=== PATIENT | female | born 1950 | race Caucasian/White ===

== ENCOUNTER 2017-07-09 06:37 | Inpatient (IN) ==
[~2017-07-09 06:37] MED LIST: ACETAMINOPHEN 500 MG TABLET PO ONE; CEFAZOLIN 1 G INJECTION IVP ONE; DEXAMETHASONE 4 MG/ML INJECTION IVP ONE; FAMOTIDINE PB 20 MG/50 ML BAG IV ONE; LIDOCAINE 1% (10mg/ml) 2mL INJ PF SDV ID ONE; METOCLOPRAMIDE 10mg/2ml INJECTION IVP ONE; NOZIN NASAL SWAB NAS ONE; ONDANSETRON 4 MG/2 ML INJECTION IVP ONE
[2017-07-09 06:51] VITALS: BMI 33.2
[2017-07-09] MEDS ORDERED: SALINE FLUSH 10ml SYRINGE IVF PRN (06:54)
--- NOTE | 2017-07-09 07:20 | History & Physical Update ---
- History and Physical Update Date: 07/09/17 Update: I evaluated this patient and found no changes in the history and clinical exam findings. The treatment plan and recommendations are also unchanged from the previous documentation.
[2017-07-09] MEDS: LR 1,000 ML IV SCH ×2 (07:59→10:35)
[2017-07-09] MEDS ORDERED: EPINEPHrine 0.25 MG, BUPIVACAINE 0.25% PF 30 ML, MORPHINE SULFATE 15 MG, KETOROLAC INJ ... OPSITE ONE (08:00)
[2017-07-09] MEDS ORDERED: PROPOFOL 500 MG/50 ML VIAL IV ONE (09:09)
[2017-07-09] MEDS ORDERED: MIDAZOLAM 2mg/2ml INJECTION ONE ×2 (09:10→10:20)
[2017-07-09] MEDS ORDERED: VANCOMYCIN 1,000 MG INJECTION ONE (10:10)
[2017-07-09] MEDS ORDERED: KETAMINE 500 MG/10 ML INJECTION ONE (10:19)
[2017-07-09] MEDS ORDERED: FentaNYL 100 MCG/2 ML INJECTION ONE ×4 (10:19→12:25)
[2017-07-09] MEDS ORDERED: LIDOCAINE 2% JELLY Tube 30ml ONE (10:27)
--- NOTE | 2017-07-09 10:27 | Anesthesia Preoperative Report ---
Anesthesia Preoperative Record - Date and Time Date: 07/09/17 Preoperative Diagnosis: Lt TKA (RA) M17.12 Proposed Procedure: left TKA NPO Since Date: 07/08/17 NPO Since Time: 23:00 Allergies/Adverse Reactions: Allergies Allergy/AdvReac Type Severity Reaction Status Date / Time codeine AdvReac Unknown N/V Unverified 07/09/17 07:19 - Vital Signs Vital Signs: Temperature 98.2 F 07/09/17 06:49 Pulse Rate 58 L 07/09/17 07:44 Respiratory Rate 20 07/09/17 06:49 Blood Pressure 145/81 H 07/09/17 06:49 Pulse Oximetry 96 07/09/17 06:49 Oxygen Delivery Method Room Air Height and Weight: Height 5 ft 7 in Weight 96.2 kg Body Mass Index 33.2 - Medications Inpatient Medications: Current Medications Lactated Ringer's (Lactated Ringers) 1,000 mls @ 50 mls/hr IV .Q20H RASHEL Last Admin: 07/09/17 07:59 Dose: 50 mls/hr Miscellaneous Medication (Tranexamic 1gm/Ns 100 Irr Mix) 100 ml IR O ONE Stop: 07/09/17 10:53 Sodium Chloride (Iv Flush) 10 - 80 ml IVF PRN PRN PRN Reason: Flushing Home Medications: Home Medications Medication Instructions Recorded Confirmed Type Amiodarone HCl 200 mg PO DAILY #0 tab 12/12/15 07/09/17 History Enalapril Maleate 20 mg PO BID #0 tab 12/12/15 07/09/17 History Gabapentin 300 mg PO TID #0 cap 12/12/15 07/09/17 History Labetalol HCl 1 tab PO BID #0 tab 12/23/15 07/09/17 History Amlodipine [Norvasc] 10 mg PO DAILY 07/02/17 07/09/17 History Hydrocodone/APAP 10/325 [Joseph 1 tab PO ACHS 07/02/17 07/09/17 History 10/325] Morphine Sulfate [Morphine Sulfate 30 mg PO Q12H PRN 07/02/17 07/09/17 History ER] Omeprazole 40 mg PO DAILY 07/02/17 07/09/17 History metoclopramide 10 mg tablet 10 mg PO BID tab 07/05/17 07/09/17 History Is Patient on Beta Bimal?: Yes - Medical History Respiratory: DENIES: Asthma Cardiovascular: Reports: Arrhythmia (PSVT- well controlled) Gastrointestional: Reports: Gastroesophageal Reflux Disease (well controlled) Renal/Endocrine: DENIES: Diabetes Mellitus Type 2 Other History: DENIES: Anesthesia Reactions - Surgical History GI Surgery/Treatments: Reports: Colonoscopy (diverticulosis), EGD, Other (Laser treatment for tracheal stenosis x2) Musculoskeletal Surgery/Tx: Reports: Orthopedic Surgery (ORIF Rt arm), Total Hip Replacement (right-2016), Other (lt ankle scope) Reproductive Surgery/Treatment: Reports: Hysterectomy, Other (breast biopsy) Hx Family Anesthesia Reaction: No History of Motion Sickness: No - Social History Smoking Status: Never smoker Hx Chewing Tobacco Use: No Substance Use Type: does not use - Pertinent Findings Laboratory: CBC and BMP 07/09/17 07:03 BMP 07/09/17 07:03 Sodium 143 Potassium 3.3 L Chloride 106 Carbon Dioxide 27 BUN 12.0 Creatinine 0.8 Glucose 85 Calcium 9.3 - Physical Exam Respiratory Exam: Present: lungs clear Cardiovascular Exam: Present: regular rate and rhythm - Airway Assessment Mallampati Score: II TMD: 3 Fingerbreadths Neck Extension: good Overall Assessment: no airway concerns - ASA ASA Score: 2 - Plan Anesthesia: General Inhalation Gases - Discussion Discussion: Discussed risks/options/alternatives of anesthesia and questions answered. Patient consents. Nursing pain assessment noted. Attestation Statement: Prior to the delivery of any anesthetic medication, I examined the patient, developed the plan, obtained the patient's consent and discussed the risk and benefits of the procedure with the patient/guardian. - Additional Information Seen by Anesthesia: Yes
[2017-07-09] MEDS ORDERED: TRANEXAMIC ACID 1gm/NS 100ml IRR MIX IR ONE (10:52)
[2017-07-09] MEDS ORDERED: ROPIVACAINE 0.5% (5mg/ml) 30ml INJ ONE (11:05)
[2017-07-09] MEDS ORDERED: PROPOFOL 20 ML ONE (11:24)
[2017-07-09] MEDS ORDERED: VANCOMYCIN 1,000 MG INJECTION IAR ONE (11:35)
--- NOTE | 2017-07-09 12:04 | Operative Note ---
- Procedure Side: left Preoperative Diagnosis: hip primary DJD Postoperative Diagnosis: Same as preoperative diagnosis. Operation: total knee arthroplasty Surgeon: Dayo Ramirez MD Radio Dispatcher: Jonn Lea Complications: None. Regional/Trunk Block: Spinal Estimated Blood Loss: See Anesthesia Record. Fluids: Please see Anesthesia Record. Description of Procedure: Mrs. Nelson and her left knee were identified and marked in the preoperative holding area. She was brought back to the operating suite and placed supine on the operating table. Spinal anesthetic was administered. The operative lower extremity was prepped and draped in a sterile fashion. Timeout was performed. She had a severe fixed valgus deformity. An anterior midline incision followed by medial parapatellar arthrotomy was performed. The tourniquet was inflated 250 mmHg. Hemostasis was obtained with electrocautery. She complete loss of cartilage in the lateral femoral condyle and she had hypoplasia of the lateral femoral condyle. The patella was resurfaced to a size 9. A distal femoral osteotomy was then performed in 5 of valgus using intramedullary guide. The femur was sized at a 6 and rotation set using the epicondylar axis. Distal femoral cuts were performed with a 4-in-1 cutting block. A proximal tibial cut was then made perpendicular to its long axis using an extramedullary guide. At this point remaining meniscus and osteophytes were removed and joint cocktail was injected throughout soft tissue. Trial components were placed with a 9 mm spacer. This allowed for full extension and flexion and the patella tracked well after lateral release. The leg was then exsanguinated and the tourniquet inflated to 250 mmHg. The tibia was then stamped at a size 6 at the proper rotation. The bone was then prepared for cementing and Emma Triathal[employer] components were cemented into place and allowed to cure in extension. The tourniquet was then let down and hemostasis obtained with electrocautery. 1 g of TXA was allowed to sit in the wound for 5 minutes and then suctioned out.Betadine solution was used during the curing period for 3 minutes. 1 g of vancomycin powder was placed into the joint before the capsulotomy was repaired with #1 Vicryl. I then left my funeral assistant close the subcutaneous tissue and skin with 2-0 Vicryl and Monocryl. Dermabond was used on the skin. The drapes were then removed and she was taken to recovery room under the care of anesthesia.
[2017-07-09] MEDS: HYDROMORPHONE 2 MG/ML INJECTION IVP PRN ×4 (12:43→13:19)
[2017-07-09] MEDS: FentaNYL 100 MCG/2 ML INJECTION IVP PRN ×2 (13:35→13:49)
--- NOTE | 2017-07-09 14:01 | Anesthesia Postoperative Note ---
- Date and Time Date: 07/09/17 Time: 14:00 - Status Patient Participated in Evaluation: Patient Participated in Person Vital Signs: Temperature 97.1 F 07/09/17 12:26 Pulse Rate 67 07/09/17 13:55 Respiratory Rate 14 07/09/17 13:55 Blood Pressure 141/75 H 07/09/17 13:55 Pulse Oximetry 98 07/09/17 13:55 Oxygen Delivery Method Nasal Cannula Oxygen Flow Rate 2 Respiratory Function: Airway Patent Cardiovascular Function: Regular Pulse EKG Rhythm: Normal Sinus Rhythm Mental Status: Alert and Oriented Pain Intensity: 5 Hydration: IV Infusing Complications During Recover: None Apparent - Follow-Up Instructions Instructions: Per Surgeon
[2017-07-09] MEDS ORDERED: Oxycodone *IR* 5 MG TABLET PO ONE (14:02)
--- NOTE | 2017-07-09 14:04 | Anesthesia Procedure Note ---
Peripheral Nerve Blockade - Procedure Physician: Declan Ramirez MD Date: 07/09/17 Surgical Procedure: left knee arthroplasty Discussion: Discussed risks/options/alternatives of anesthesia and questions answered. Patient consents. Nursing pain assessment noted. Block Start: 12:31 Block Stop: 12:32 Indication: Post-Operative Pain Position: Supine Patient: Consent, Risks/Benefits Discussed, Post Block Act. Discussed IV Sedation: No Initial Vital Signs: Temperature 98.2 F 07/09/17 06:49 Temperature Source Oral 07/09/17 06:49 Pulse Rate 62 07/09/17 06:49 Respiratory Rate 20 07/09/17 06:49 Blood Pressure 145/81 H 07/09/17 06:49 Blood Pressure Mean 102 07/09/17 06:49 Blood Pressure Position Sitting 07/09/17 06:49 Pulse Oximetry 96 07/09/17 06:49 Oxygen Delivery Method 07/09/17 06:49 Post Vital Signs: Temperature 97.1 F 07/09/17 12:26 Pulse Rate 67 07/09/17 13:55 Respiratory Rate 14 07/09/17 13:55 Blood Pressure 141/75 H 07/09/17 13:55 Pulse Oximetry 98 07/09/17 13:55 Oxygen Delivery Method Nasal Cannula Oxygen Flow Rate 2 Initial Pain Pain Score: 10 Post Block Pain Score: 5 Prep: Chlorhexadine/ETOH Ultrasound Used?: Yes - Injectate Ropivacaine (%): 0.5 Ropivacaine (mL): 20 Injection: Injection made incrementally with constant monitoring and aspiration every ml
--- NOTE | 2017-07-09 14:10 | XRay Report ---
Indication: left total knee replacement PROCEDURE: XR knee LT 2V: Encounter: Initial Comparison: None Findings: Postoperative changes of left total knee replacement are seen. There is expected postoperative subcutaneous gas. No evidence of hardware failure or acute fracture. Linear metallic foreign body in the anterior and medial soft tissues measuring 1.8 cm in length of uncertain etiology. No retained radiopaque surgical instruments or sponges. Overlying material causing artifact. Impression: New left total knee prosthesis without evidence of immediate complication. Small linear metallic foreign body in the area of the quadriceps musculature. .
[2017-07-09] MEDS ORDERED: DiphenhydrAMINE 25 MG CAPSULE PO PRN (14:26)
[2017-07-09] MEDS ORDERED: NOZIN NASAL SWAB NAS ONE (14:26)
[2017-07-09] MEDS ORDERED: Oxycodone *IR* 5 MG TABLET PO PRN ×2 (14:26→15:30)
[2017-07-09] MEDS ORDERED: LORazepam 1 MG TABLET PO PRN (14:26)
[2017-07-09] MEDS ORDERED: DiphenhydrAMINE 50 MG/ML INJECTION IVP PRN (14:26)
[2017-07-09] MEDS ORDERED: ONDANSETRON 4 MG/2 ML INJECTION IVP PRN (14:26)
[2017-07-09] MEDS ORDERED: NAPROXEN 220 MG TABLET PO PRN (14:26)
[2017-07-09] MEDS: ACETAMINOPHEN 325 MG TABLET PO SCH ×3 (14:38→22:54)
[2017-07-09] MEDS: NS 1,000 ML IV SCH (14:39)
[2017-07-09] MEDS: NOZIN NASAL SWAB NAS SCH ×2 (15:38→21:25)
[2017-07-09] MEDS: GABAPENTIN 300 MG CAPSULE PO SCH ×2 (15:38→21:24)
[2017-07-09] MEDS ORDERED: TRANEXAMIC ACID 1,000 MG in NS 100 ML IV ONE (16:16)
[2017-07-09] MEDS: CEFAZOLIN 2 G in NS 100 ML IV SCH (17:38)
[2017-07-09] MEDS ORDERED: SENNOSIDES 8.6 MG TABLET PO SCH (21:00)
[2017-07-09] MEDS: LABETALOL 100 MG TABLET PO SCH (21:23)
[2017-07-09] MEDS: ASPIRIN *EC* 325 MG TABLET PO SCH (21:24)
[2017-07-09] MEDS: DOCUSATE SODIUM 100 MG CAPSULE PO SCH (21:24)
[2017-07-10] MEDS: CEFAZOLIN 2 G in NS 100 ML IV SCH (01:03)
[2017-07-10] MEDS: NS 1,000 ML IV SCH (05:12)
[2017-07-10] MEDS: NOZIN NASAL SWAB NAS SCH (05:13)
[2017-07-10] MEDS ORDERED: AMLODIPINE 10 MG TABLET PO SCH (09:00)
[2017-07-10] MEDS ORDERED: AMIODARONE 200 MG TABLET PO SCH (09:00)
[2017-07-10] MEDS: ASPIRIN *EC* 325 MG TABLET PO SCH (09:24)
[2017-07-10] MEDS: POLYETHYL GLYCOL 3350 17gm PACKET PO SCH ×2 (09:24→09:31)
[2017-07-10] MEDS: LABETALOL 100 MG TABLET PO SCH (09:25)
[2017-07-10] MEDS: ACETAMINOPHEN 325 MG TABLET PO SCH ×2 (09:25→12:29)
[2017-07-10] MEDS: DOCUSATE SODIUM 100 MG CAPSULE PO SCH (09:26)
[2017-07-10] MEDS: GABAPENTIN 300 MG CAPSULE PO SCH (09:26)
[2017-07-10 12:07] VITALS: BP 107/64; PULSE 68; RESP 18; TEMP 96.9; O2SAT 98
--- NOTE | 2017-07-10 12:09 | Orthopedic Progress Note ---
Date: Doing well. No specific concerns. Orthopedic Objective Vital signs: Temperature 97.7 F 07/10/17 08:00 Pulse Rate 66 07/10/17 08:00 Respiratory Rate 16 07/10/17 08:00 Blood Pressure 135/75 07/10/17 08:00 Pulse Oximetry 92 07/10/17 08:00 Oxygen Delivery Method Room Air Oxygen Flow Rate 1 Height and Weight: Height 5 ft 7 in Weight 96.2 kg Body Mass Index 33.2 - Constitutional General Appearance: Present: no acute distress - Respiratory Exam Present: non-labored - Cardiovascular Exam Present: pedal pulses intact Capillary Refill: < 2-3 Seconds - Extremities Exam Absent: calf tenderness - Neurological Exam Present: no deficits. Absent: intact to light touch - Psychiatric Exam Present: alert - Wound Management Left Knee Drainage Amount: None Primary Dressing: Mepilex - Labs Result Diagrams: 07/10/17 04:16 07/10/17 04:16 Abnormal lab results 07/10/17 07/10/17 Range/Units 04:16 04:16 RBC 3.20 L (4.00-5.20) M/MM3 Hgb 8.6 L (12-16) GM/DL Hct 28.9 L (36-46) % MCHC 29.8 L (31-37) GM/DL MPV 8.3 L (9.4-12.4) UM3 Potassium 3.5 L (3.6-5) MEQ/L Chloride 109 H (98-107) MEQ/L Glucose 130 H (65-110) MG/DL H & H 07/10/17 Range/Units 04:16 Hgb 8.6 L (12-16) GM/DL Hct 28.9 L (36-46) % Orthopedic Assessment and Plan (1) Primary osteoarthritis of left knee Status: Resolved Assessment and Plan: Doing well. Continue current treatment. Plan on discharge today pending her PT evaluation. Hospital Course Summary Disclaimer: The visit summary below is not to be considered part of the above Progress Note.
[2017-07-10] MEDS ORDERED: SENNOSIDES 8.6 MG TABLET PO PRN (12:17)
--- NOTE | 2017-07-10 13:13 | Discharge Summary ---
Orthopedic Discharge Info Date of admission: 07/09/17 06:37 Primary care physician: Grecia Goodman MD Attending Physician: Declan Ramirez MD Consults: 07/09/17 06:54 Consult to Anesthesiology [CONS] Routine Consulting Provider: STEFANY Muniz Reason For Exam: Preoperative Assessment 07/09/17 14:26 Case Management Consult [CONS] Routine Reason For Exam: Discharge Planning DME-Walker [CONS] Routine Height: 5 ft 7 in Weight: 212 lb 1.355 oz Comment: change dressing in 2 weeks Total Joint Outpatient Therapy [CONS] Routine Comment: change dressing in 2 weeks - Discharge Diagnosis (1) Primary osteoarthritis of left knee Status: Resolved - Procedures Procedures: Procedures Left TKA - Laboratory Result Diagrams: 07/10/17 04:16 07/10/17 04:16 Laboratory: Abnormal lab results 07/10/17 07/10/17 Range/Units 04:16 04:16 RBC 3.20 L (4.00-5.20) M/MM3 Hgb 8.6 L (12-16) GM/DL Hct 28.9 L (36-46) % MCHC 29.8 L (31-37) GM/DL MPV 8.3 L (9.4-12.4) UM3 Potassium 3.5 L (3.6-5) MEQ/L Chloride 109 H (98-107) MEQ/L Glucose 130 H (65-110) MG/DL H & H 07/10/17 Range/Units 04:16 Hgb 8.6 L (12-16) GM/DL Hct 28.9 L (36-46) % Orthopedic Discharge HPI - HPI Comments This patient was admitted for elective surgical tx of end stage degenerative joint disease that failed to respond to conservative treatment. Further details of this is found in the admission H&P. Orthopedic Hospital Course Hospital course: 07/10/17 13:10 After appropriate preoperative clearance and signing of operative consent, the patient was given IV antibiotics, according to orthopedic protocol. The patient was taken to the operating room and underwent elective joint arthroplasty. Following surgery, antibiotics were discontinued less than 24 hours according to joint protocol. Appropriate anticoagulants were initiated and SCDs added for DVT prevention. The dressing was clean, dry, and intact. Pain control was obtained via multimodal approach. Bowel motivation addressed with scheduled and PRN medications. Early mobilization was initiated through PT services. Discharge arrangements made by a collaborative effort between the patient and Case Management. Follow-up is scheduled in 2-3 weeks. Discharge instructions given by orthopedic providers and nursing staff at discharge. Discharge condition was good. - Postoperative Anemia patient received IVF, labs monitored daily, no intervention required, HGB drop- acceptable Discharge Plan - Med Rec/Dispo Referrals/Follow Up: Declan Ramirez MD [Physician] - 07/31/17 2:15 pm Alirezauvjanice Instructions: [facility] Ortho Postop Instructions Prescriptions: New Acetaminophen [Tylenol] 650 mg PO QID #60 tablet Aspirin *EC* [Ecotrin] 325 mg PO BID #60 tablet Oxycodone *Ir* [Roxicodone *Ir*] 5 - 10 mg PO Q4H PRN #60 tablet PRN Reason: Breakthrough Pain Naproxen [Aleve] 440 mg PO BID PRN #60 tablet PRN Reason: Pain Continue Gabapentin 300 mg PO TID #0 cap Amiodarone HCl 200 mg PO DAILY #0 tab Morphine Sulfate [Morphine Sulfate ER] 30 mg PO Q12H PRN PRN Reason: Pain Enalapril Maleate 20 mg PO BID #0 tab Labetalol HCl 1 tab PO BID #0 tab Amlodipine [Norvasc] 10 mg PO DAILY Omeprazole 40 mg PO DAILY metoclopramide 10 mg tablet 10 mg PO BID tab Discontinued Hydrocodone/APAP 10/325 [Hyrum 10/325] 1 tab PO ACHS - Disposition 01 Discharged Home, Self-Care
[2017-07-11] MEDS ORDERED: BISACODYL 10 MG SUPPOSITORY RECTALLY SCH (20:00)
== END 2017-07-10 15:10 | disposition home or self-care (01) | DRG 470 ==
LOC: SRG 06:37
PROVIDERS: ADMIT Orthopaedic Surgery; ATTEND Orthopaedic Surgery